=== PATIENT | male | born 1965 | race Caucasian/White ===

== ENCOUNTER → 2020-03-26 | Outpatient (CLI) | payer OTHER, MEDICARE | LOC: SJCVC 13:28 | PROVIDERS: ATTEND Internal Medicine Cardiovascular Disease | DX: R00.2 Palpitations (principal); R07.9 Chest pain, unspecified; Z79.899 Other long term (current) drug therapy ==

== ENCOUNTER → 2020-04-17 | Outpatient (CLI) | payer OTHER, MEDICARE | LOC: SJCVCIMAG 10:55 | PROVIDERS: ATTEND Internal Medicine Cardiovascular Disease | DX: R00.0 Tachycardia, unspecified (principal); R07.9 Chest pain, unspecified; Z79.899 Other long term (current) drug therapy ==